=== PATIENT | male | born 1985 | race Caucasian/White ===

== ENCOUNTER 2017-04-02 04:59 | Emergency (ER) | payer SELFPAY ==
[2017-04-02 05:49] VITALS: BP 128/70
== END 2017-04-02 05:49 | disposition home or self-care (01) ==
LOC: ED 04:59
DX: S05.02XA Injury of conjunctiva and corneal abrasion without foreign body, left eye, initial encounter (principal); W20.8XXA Other cause of strike by thrown, projected or falling object, initial encounter; Y93.H3 Activity, building and construction; Y92.61 Building [any] under construction as the place of occurrence of the external cause; Y99.8 Other external cause status

== ENCOUNTER 2017-09-16 23:52 | Emergency (ER) | payer SELFPAY ==
[~2017-09-16] VITALS: Ht 175.3 cm; Wt 80.9 kg
[2017-09-17 02:12] LABS: microscopic required? NO
[2017-09-17 02:38] LABS: urine erythrocyte NEGATIVE (NEGATIVE)
[2017-09-17 04:37] VITALS: BP 111/58
== END 2017-09-17 04:37 | disposition home or self-care (01) ==
LOC: ED 23:52
PROVIDERS: Emergency Medicine
DX: R51 Headache (principal)
CPT/HCPCS: J1885; J2765